=== PATIENT | male | born 1990 | race Two or more races ===

== ENCOUNTER 2022-01-11 20:04 | Emergency (ER) | payer OTHER ==
[~2022-01-11] VITALS: Ht 177.8 cm; Wt 79.0 kg
[2022-01-11 20:04] VITALS: BP 124/82
== END 2022-01-11 22:36 | disposition left against medical advice (07) ==
LOC: ER 20:07
DX: R07.89 Other chest pain (principal); F14.10 Cocaine abuse, uncomplicated; Z53.29 Procedure and treatment not carried out because of patient's decision for other reasons
CPT/HCPCS: 71045; 93005